=== PATIENT | male | born 1955 ===

== ENCOUNTER 2022-08-18 10:30 | Outpatient (CLI) | payer BC | END 2022-08-18 10:31 | disposition home or self-care (01) | LOC: BICULT 10:30 | PROVIDERS: ATTEND Urology | DX: Z08 Encounter for follow-up examination after completed treatment for malignant neoplasm (principal); Z85.528 Personal history of other malignant neoplasm of kidney; Z90.5 Acquired absence of kidney; N28.1 Cyst of kidney, acquired; N32.3 Diverticulum of bladder | CPT/HCPCS: 76770 ==